=== PATIENT | female | born 1940 | race Caucasian/White ===

== ENCOUNTER → 2016-09-13 | Outpatient (CLI) | payer MEDICARE ==
--- NOTE | 2016-09-13 14:36 | RAD ---
Indication pain. The patient has a mastectomy scar in the right chest. The area along the scar was evaluated. At the medial end of the surgical scar there is a small hypoechoic mass involving the dermis most compatible with a focus of scarring. This involves the dermis. No deep-seated soft tissue mass or abnormality outside the dermis is seen
== END | disposition home or self-care (01) ==
LOC: US 13:43
PROVIDERS: ATTEND Family Medicine
DX: L90.5 Scar conditions and fibrosis of skin (principal); R22.2 Localized swelling, mass and lump, trunk; Z90.11 Acquired absence of right breast and nipple
CPT/HCPCS: 76536

== ENCOUNTER → 2018-02-06 | Outpatient (CLI) | payer MEDICARE ==
--- NOTE | 2018-02-06 13:41 | RAD ---
DATE: February 06, 2018 EXAM: MAMMO PÉREZ SCREEN LT HISTORY: Right breast cancer treated with mastectomy 5 years ago. COMPARISON: 2016 and 2017 This study was interpreted with the benefit of Computerized Aided Detection (CAD). 2-D digital mammographic views of the left breast were performed in the CC and MLO projections. 3-D digital tomosynthesis images of the left breast were performed in the CC and MLO projections and reviewed on a computer workstation. FINDINGS: Breast Density: SCATTERED The breast parenchyma shows scattered fibroglandular densities. Breast parenchyma level B.. There are no dominant suspicious masses, suspicious microcalcifications or evidence of architectural distortion. IMPRESSION: No mammographic indicators for malignancy on the left side. BI-RADS CATEGORY: 1 NEGATIVE RECOMMENDED FOLLOW-UP: 12M 12 MONTH FOLLOW-UP PQRS compliance statement: Patient information was entered into a reminder system with a target due date February 07, 2019 for the next mammogram. Mammography is a sensitive method for finding small breast cancers, but it does not detect them all and is not a substitute for careful clinical examination. A negative mammogram does not negate a clinically suspicious finding and should not result in delay in biopsying a clinically suspicious abnormality. "Our facility is accredited by the [employer]amm[employer]." The patient's breast density may affect the ability of mammography to detect breast cancer. There are 4 categories of breast density, A, B, C and D. Breast density A means that most of the breast tissue is replaced with adipose tissue and therefore is not dense. Breast density B means that the breast tissue is mildly dense and scattered. Breast density C means that the breast tissue is heterogeneously dense. Breast density D means that the breast tissue is very dense. Breast densities especially C and D may decrease the sensitivity of mammography to detect breast cancer. Therefore, the patient may benefit from 3-D breast mammography (3D breast tomography) as a part of their screening mammogram. Insurance may or may not pay for this additional imaging. The patient's breast density based on today's mammogram is category B.
== END | disposition home or self-care (01) ==
LOC: MAMMO 13:01
PROVIDERS: ATTEND Family Medicine
DX: Z12.31 Encounter for screening mammogram for malignant neoplasm of breast (principal); Z85.3 Personal history of malignant neoplasm of breast; Z90.11 Acquired absence of right breast and nipple
CPT/HCPCS: 77063; 77067

== ENCOUNTER → 2019-01-10 | Outpatient (CLI) | payer MEDICARE ==
--- NOTE | 2019-01-10 09:54 | CARD ---
MR#: [id number] Date of Study: 01/10/2019 Ordering Physician: TAMMI LOZADA, Referring Physician: TAMMI LOZADA Tech: Keisha Ivey RDCS APPROVED REPORT EXAM: Two-dimensional and M-mode echocardiogram with Doppler and color Doppler. Other Information Quality : Good INDICATION Complete Heart Block Surgery/Intervention Pacemaker: Date: 2017 2D DIMENSIONS RVDd2.7 (2.9-3.5cm)Left Atrium(2D)2.9 (1.6-4.0cm) IVSd0.7 (0.7-1.1cm)Aortic Root(2D)3.1 (2.0-3.7cm) LVDd4.5 (3.9-5.9cm)LVOT Diameter1.9 (1.8-2.4cm) PWd0.7 (0.7-1.1cm)LVDs3.7 (2.5-4.0cm) FS (%) 18.8 %SV36.5 ml LVEF(%)39.0 (>50%) Aortic Valve AoV Peak Michael.119.2cm/sAoV VTI22.0cm AO Peak GR.5.7mmHgLVOT Peak Michael.93.5cm/s LVOT VTI 18.01cmAO Mean GR.3mmHg ALVINA (VMAX)2.66ro6RDU (VTI)2.29cm2 Mitral Valve MV E Junvnmxz379.6cm/sMV DECEL VJKT863bl MV A Szvvblxk04.3cm/sE/A Ratio2.8 Tricuspid Valve TR P. Stpofyeu717gu/sRAP HXRDXSNM1heKh TR Peak Gr.18laGcMFTN37lkLj LEFT VENTRICLE The left ventricle is normal size. There is normal left ventricular wall thickness. Left ventricle sy stolic function is moderate to severely impaired. The Ejection Fraction is 30%. Septal motion suggest franko of conduction defect. Moderate to severe hypokinesis in the distal 1/2 of the LV. RIGHT VENTRICLE The right ventricle is normal size. The right ventricular systolic function is normal. There is a pac emaker/ICD lead in the right ventricle. ATRIA The left atrium size is normal. The right atrium size is normal. A pacemaker is seen in the right atr ium consistent with history. The interatrial septum is intact with no evidence for an atrial septal d efect or patent foramen ovale as noted on 2-D or Doppler imaging. AORTIC VALVE The aortic valve is calcified but opens well. Doppler and Color Flow revealed no significant aortic r egurgitation. There is no significant aortic valvular stenosis. MITRAL VALVE The mitral valve is normal in structure and function. There is no evidence of mitral valve prolapse. There is no mitral valve stenosis. Doppler and Color-flow revealed mild to moderate mitral regurgitat ion. TRICUSPID VALVE The tricuspid valve is normal in structure and function. Doppler and Color Flow revealed mild tricusp id regurgitation. The PA pressure was estimated at 26 mmHg. There is no tricuspid valve stenosis. PULMONIC VALVE The pulmonic valve is not well visualized. Doppler and Color Flow revealed trace pulmonic valvular re gurgitation. There is no pulmonic valvular stenosis. GREAT VESSELS The aortic root is normal in size. The ascending aorta is normal in size. The IVC is normal in size a nd collapses >50% with inspiration. PERICARDIAL EFFUSION There is no evidence of significant pericardial effusion. Critical Notification Critical Value: No <Conclusion> Left ventricle systolic function is moderate to severely impaired. The Ejection Fraction is 30%. Septal motion suggestive of conduction defect. Moderate to severe hypokinesis in the distal 1/2 of th e LV. There is a pacemaker/ICD lead in the right ventricle. Doppler and Color-flow revealed mild to moderate mitral regurgitation. Signed by : Eloy Tavares, Electronically Approved : 01/10/2019 09:54:34
[2019-01-10] MEDS: REGADENOSON 0.4 MG/5 ML DISP.SYRIN. IV ONE (12:24)
--- NOTE | 2019-01-10 12:50 | RAD ---
MR#: [id number] Date of Study: 01/10/2019 Ordering Physician: TAMMI LOZADA Referring Physician: CHANTE BROWN Tech: RT Dora Boone) (N) APPROVED REPORT Test Type: Pharmacological Stress Nurse/Tech: RT Mely (Divine) (N) Test Indications: complete heart block Cardiac History: pacemaker Medications: see EHR Medical History: see see EHR Resting EC% v paced Resting Heart Rate: 77 bpm Resting Blood Pressure: 149/75mmHg Pretest Chest Pain: None Nurse/Tech Notes Consent: The procedure was explained to the patient in lay terms. Informed consent was witnessed. Giancarlo eout was entered into [employer]. History and Stress Test performed by RT Armen BooneR) (N) Pharm. Details Pharmacologic stress testing was performed using 0.4mg per 5ml of regadenoson given intravenously ove r 7-10 seconds. POST EXERCISE Reason for Termination: Infusion complete Max HR: 141 bpm Max Blood Pressure: 153/79mmHg INTERPRETATION Stress EKG Conclusion: No evidence of stress induced EKG changes Imaging Protocol IMAGE PROTOCOL: Rest Tc-99m/stress Tc-99m 1 day Rest: Stress: Viability: Radiopharm.Tc99m VdaxuiejjKu69g Sestamibi Dose10.5mCi 32.1mCi Duration 15min. 10min. Img Date 01/10/2019 01/10/2019 Inj-Img Foht22vap. 60min. Rest Admin Site:IV - Left AntecubitalAdministrator: RT Mely (R)(N) Stress Admin Site: IV - Left AntecubitalAdministrator: RT Mely (Divine)(N) STRESS DATA End Diast. Vol.51.0mlAv. Heart Rate75.0bpm End Syst. Vol.14.0mlCO Index BSA2.8L/min Myocardial Gdgu429.0gEject. Hxyarchy77.0% Stress Rates Pk. Fill Rate3.53EDV/secLVtime Pk. Fill 241.63msec Pk. Empty Rate3.61ESV/secLVtime Pk. Fonho733.46msec 1/3 Pk. 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 Based on uptake on rest images this defect is mostly nonviable. Although this may be related to prior infarct a pacing artifact is not ruled out Wall Motion Normal LV function with ejection fraction of 70%. Grossly normal wall motion. LV Perf. Quant 17 Seg. SSS19.00 17 Seg. SRS20.00 17 Seg. SDS0.00 Stress Defect Extent (% LAD)28.10Rest Defect Extent (% LAD)23.80Rev. Defect Extent (% LAD)3.80 Stress Defect Extent (% LCX) 57.50Rest Defect Extent (% LCX)61.30Rev. Defect Extent (% LCX)0.00 Stress Defect Extent (% RCA)51.10Rest Defect Extent (% RCA)67.80Rev. Defect Extent (% RCA)0.00 Stress Defect Extent (% DANI)43.90Rest Defect Extent (% DANI)46.10Rev. Defect Extent (% DANI)1.30 Conclusion 1. Paced rhythm is nondiagnostic for any ischemic changes 2. There is a large fixed inferior defect suggestive of prior infarct but given the normal LV functio n/near normal wall motion this may also be related to the pacing artifact. 3. Normal LV function with ejection fraction of 70% 4. Moderate risk study. Signed by : Eloy Tavares, Electronically Approved : 01/10/2019 12:49:43
== END | disposition home or self-care (01) ==
LOC: NM 08:00
PROVIDERS: ATTEND Internal Medicine Cardiovascular Disease
DX: I08.3 Combined rheumatic disorders of mitral, aortic and tricuspid valves (principal); I44.2 Atrioventricular block, complete; Z95.0 Presence of cardiac pacemaker
CPT/HCPCS: 78452; 93017; 93306; A9500; J2785

== ENCOUNTER → 2019-02-12 | Outpatient (CLI) | payer MEDICARE ==
--- NOTE | 2019-02-12 19:25 | RAD ---
DATE: 02/12/2019 EXAM: MAMMO PÉREZ SCREEN LT HISTORY: Routine screening, right mastectomy in 2013 COMPARISON: 11/30/2016 and 02/06/2018 mammographic exams This study was interpreted with the benefit of Computerized Aided Detection (CAD). Breast Density: SCATTERED The breast parenchyma shows scattered fibroglandular densities. Breast parenchyma level B. FINDINGS: No suspicious calcific lesion, mass, or distortion. IMPRESSION: Stable BI-RADS CATEGORY: 1 NEGATIVE RECOMMENDED FOLLOW-UP: 12M 12 MONTH FOLLOW-UP PQRS compliance statement: Patient information was entered into a reminder system with a target due date for the next mammogram. Mammography is a sensitive method for finding small breast cancers, but it does not detect them all and is not a substitute for careful clinical examination. A negative mammogram does not negate a clinically suspicious finding and should not result in delay in biopsying a clinically suspicious abnormality. "Our facility is accredited by the [employer]."
== END | disposition home or self-care (01) ==
LOC: MAMMO 10:45
PROVIDERS: ATTEND Family Medicine
DX: Z12.31 Encounter for screening mammogram for malignant neoplasm of breast (principal); Z90.11 Acquired absence of right breast and nipple; Z85.3 Personal history of malignant neoplasm of breast
CPT/HCPCS: 77063; 77067

== ENCOUNTER → 2020-02-14 | Outpatient (CLI) | payer MEDICARE ==
--- NOTE | 2020-02-14 18:41 | RAD ---
DATE: 02/14/2020 EXAM: MAMMO PÉREZ SCREEN LT HISTORY: Screening. History of right mastectomy in 2013 COMPARISON: 02/12/2019, 02/06/2018 This study was interpreted with the benefit of Computerized Aided Detection (CAD). Breast Density: SCATTERED The breast parenchyma shows scattered fibroglandular densities. Breast parenchyma level B. FINDINGS: No mass, suspicious calcification, or architectural distortion in either breast. IMPRESSION: No evidence of malignancy. BI-RADS CATEGORY: 1 NEGATIVE RECOMMENDED FOLLOW-UP: 12M 12 MONTH FOLLOW-UP PQRS compliance statement: Patient information was entered into a reminder system with a target due date for the next mammogram. Mammography is a sensitive method for finding small breast cancers, but it does not detect them all and is not a substitute for careful clinical examination. A negative mammogram does not negate a clinically suspicious finding and should not result in delay in biopsying a clinically suspicious abnormality. "Our facility is accredited by the [employer]."
== END ==
LOC: MAMMO 10:13
PROVIDERS: ATTEND Family Medicine
DX: Z12.31 Encounter for screening mammogram for malignant neoplasm of breast (principal)
CPT/HCPCS: 77063; 77067

== ENCOUNTER → 2020-04-28 | Outpatient (CLI) | payer MEDICARE ==
--- NOTE | 2020-04-29 10:20 | CARD ---
MR#: [id number] Date of Study: 04/28/2020 Ordering Physician: TAMMI LOZADA, Referring Physician: TAMMI LOZADA, Tech: Gabriela Venegas APPROVED REPORT EXAM: Two-dimensional and M-mode echocardiogram with Doppler and color Doppler. Other Information Quality : AverageHR: 83bpm INDICATION Arrhythmia Complete Heart Block Surgery/Intervention ICD/Pacemaker: Date: 2017 2D DIMENSIONS Left Atrium(2D)2.3 (1.6-4.0cm)IVSd0.8 (0.7-1.1cm) Aortic Root(2D)2.8 (2.0-3.7cm)LVDd4.7 (3.9-5.9cm) LVOT Diameter1.8 (1.8-2.4cm)PWd0.8 (0.7-1.1cm) LVDs3.2 (2.5-4.0cm)FS (%) 32.2 % SV61.2 ml Aortic Valve AoV Peak Michael.117.9cm/sAoV VTI22.1cm AO Peak GR.5.6mmHgLVOT Peak Michael.83.6cm/s LVOT VTI 14.61cmAO Mean GR.3mmHg ALVINA (VMAX)1.90nq2SFG (VTI)1.73cm2 Mitral Valve MV E Nzttldut29.5cm/sMV DECEL EAHW232os MV A Omqvumbf91.0cm/sE/A Ratio2.1 Pulmonary Valve PV Peak Ruoxadem76.0cm/sPV Peak Grad.2mmHg Tricuspid Valve TR P. Rneqfiiq305ks/sRAP UMQBTSEM5mgBj TR Peak Gr.19mmHg LEFT VENTRICLE The Left Ventricle is borderline dilated. There is normal left ventricular wall thickness. The LV sys tolic function is moderately impaired. Left ventricular ejection fraction is 35 to 40%. Mid to distal septal wall and through the apex is hypokinetic. RIGHT VENTRICLE The right ventricle is normal size. There is normal right ventricular wall thickness. The right ventr icular systolic function is normal. There is a device lead in the right ventricle. ATRIA The left atrium size is normal. The right atrium size is normal. The interatrial septum is intact wit h no evidence for an atrial septal defect or patent foramen ovale as noted on 2-D or Doppler imaging. AORTIC VALVE The aortic valve is normal in structure and function. Doppler and Color Flow revealed no significant aortic regurgitation. There is no significant aortic valvular stenosis. Calculated aortic valve area is 2.1 cm2 with maximum pressure gradient of 6 mmHg and mean pressure gradient of 3 mmHg. MITRAL VALVE The mitral valve is normal in structure and function. There is no evidence of mitral valve prolapse. There is no mitral valve stenosis. Doppler and Color-flow revealed trace mitral regurgitation. TRICUSPID VALVE The tricuspid valve is normal in structure and function. Doppler and Color Flow revealed trace tricus pid regurgitation with an estimated PAP of 22 mmHg. There is no tricuspid valve stenosis. PULMONIC VALVE The pulmonary valve is normal in structure and function. Doppler and Color Flow revealed trace pulmon ic valvular regurgitation. GREAT VESSELS The aortic root is normal in size. The ascending aorta is normal in size. The IVC is normal in size a nd collapses >50% with inspiration. PERICARDIAL EFFUSION There is no evidence of significant pericardial effusion. Critical Notification Critical Value: No <Conclusion> The Left Ventricle is borderline dilated. The LV systolic function is moderately impaired. Left ventricular ejection fraction is 35 to 40%. Mid to distal septal wall and through the apex is hypokinetic. There is a device lead in the right ventricle. Doppler and Color Flow revealed no significant aortic regurgitation. There is no significant aortic valvular stenosis. Doppler and Color-flow revealed trace mitral regurgitation. Doppler and Color Flow revealed trace tricuspid regurgitation with an estimated PAP of 22 mmHg. Signed by : Dillan Wayne MD Electronically Approved : 04/29/2020 10:19:41
== END ==
LOC: ECHO 10:23
PROVIDERS: ATTEND Internal Medicine Cardiovascular Disease
DX: I44.2 Atrioventricular block, complete (principal)
CPT/HCPCS: 93306

== ENCOUNTER → 2020-05-19 | Outpatient (CLI) | payer MEDICARE | LOC: LAB 13:00 | PROVIDERS: ATTEND Internal Medicine Cardiovascular Disease | DX: Z20.822 Contact with and (suspected) exposure to COVID-19 (principal); I42.9 Cardiomyopathy, unspecified | CPT/HCPCS: U0003 ==

== ENCOUNTER → 2021-02-25 | Outpatient (CLI) | payer MEDICARE ==
--- NOTE | 2021-02-26 11:58 | RAD ---
INDICATION : Routine Screening. COMPARISON: Priors including January 2019 TECHNIQUE: Standard mammogram screening views of the left breast were obtained with 3D tomosynthesis. CAD was utilized. FINDINGS: The breast is scattered density. No definite suspicious mass. IMPRESSION: BI-RADS Category 1: Negative. Recommend repeat exam in one year. The patient was placed into the recall system with a suggested recall date for follow up imaging. Mammography is the most sensitive method for finding small breast cancers, but it does not detect the m all and is not a substitute for careful clinical examination. A negative mammogram does not negate a clinically suspicious finding and should not result in delay in biopsying a clinically suspicious abnormality. Electronically signed by: Pawan Kumar MD (02/26/2021 11:56 AM) [id number]
== END ==
LOC: MAMMO 10:26
PROVIDERS: ATTEND Family Medicine
DX: Z12.31 Encounter for screening mammogram for malignant neoplasm of breast (principal)
CPT/HCPCS: 77063; 77067

== ENCOUNTER → 2021-09-21 | Outpatient (CLI) | payer MEDICARE ==
--- NOTE | 2021-09-21 12:05 | CARD ---
MR#: [id number] Date of Study: 09/21/2021 Ordering Physician: TAMMI LOZADA, Referring Physician: Sergey BROWN: Karel Edge [facility] APPROVED REPORT EXAM: Two-dimensional and M-mode echocardiogram with Doppler and color Doppler. Other Information Quality : AverageHR: 69bpm Rhythm : NSR INDICATION Congestive Heart Failure Surgery/Intervention Pacemaker: RISK FACTORS Smoking 2D DIMENSIONS Left Atrium(2D)2.9 (1.6-4.0cm)IVSd0.8 (0.7-1.1cm) Aortic Root(2D)2.9 (2.0-3.7cm)LVDd3.5 (3.9-5.9cm) LVOT Diameter1.8 (1.8-2.4cm)PWd0.8 (0.7-1.1cm) LA Qeowgz06 (18-58mL)LVDs1.9 (2.5-4.0cm) FS (%) 45.0 %SV38.5 ml LVEF(%)77.3 (>50%) Aortic Valve AoV Peak Michael.98.6cm/sAoV VTI18.6cm AO Peak GR.3.9mmHgLVOT Peak Michael.96.1cm/s LVOT VTI 15.09cmAO Mean GR.2mmHg ALVINA (VMAX)2.82by6FQN (VTI)2.00cm2 Mitral Valve MV E Dbrfedtp63.3cm/sMV E Peak Gr.3mmHg MV DECEL [id number] A Xesuilds05.5cm/s MV E Mean Gr.1mmHgE/A Ratio0.7 Pulmonary Valve PV Peak Ggydkjin10.8cm/sPV Peak Grad.2mmHg Tricuspid Valve TR P. Nbthhqjm007ny/sTR Peak Gr.24mmHg Pulmonary Vein S1 Alpfocut54.3cm/sD2 Olfdobtc55.6cm/s LEFT VENTRICLE The left ventricle is normal size. There is normal left ventricular wall thickness. The left ventricu lar systolic function is normal and the ejection fraction is within normal range. EF 55% There is nor mal LV segmental wall motion. Transmitral Doppler flow pattern is Grade I-abnormal relaxation pattern . No left ventricle thrombus noted on this study. There is no ventricular septal defect visualized. T here is no left ventricular aneurysm. There is no mass noted in the left ventricle. RIGHT VENTRICLE The right ventricle is normal size. There is normal right ventricular wall thickness. The right ventr icular systolic function is normal. Pacemaker lead is noted in the right atrium and right ventricle. ATRIA The left atrium size is normal. The right atrium size is normal. The interatrial septum is intact wit h no evidence for an atrial septal defect or patent foramen ovale as noted on 2-D or Doppler imaging. AORTIC VALVE The aortic valve is mildly sclerotic. The aortic valve is tri-cuspid. Doppler and Color Flow revealed no significant aortic regurgitation. There is no significant aortic valvular stenosis. There is no a ortic valvular vegetation. MITRAL VALVE The mitral valve is thickened but opens well. There is no evidence of mitral valve prolapse. There is no mitral valve stenosis. Doppler and Color-flow revealed trace to mild mitral regurgitation. TRICUSPID VALVE The tricuspid valve is normal in structure and function. Doppler and Color Flow revealed trace tricus pid regurgitation. There is no tricuspid valve prolapse or vegetation. There is no tricuspid valve st enosis. PULMONIC VALVE Doppler and Color Flow revealed no pulmonic valvular regurgitation. There is no pulmonic valvular fabrizio nosis. GREAT VESSELS The aortic root is normal in size. The ascending aorta is normal in size. The IVC is normal in size a nd collapses >50% with inspiration. PERICARDIAL EFFUSION There is no pleural effusion. There is no evidence of significant pericardial effusion. Critical Notification Critical Value: No <Conclusion> The left ventricular systolic function is normal and the ejection fraction is within normal range. EF 55% There is normal LV segmental wall motion. Pacemaker lead is noted in the right atrium and right ventricle. Technically difficult study. Signed by : Eloy Tavares, Electronically Approved : 09/21/2021 12:05:00
== END ==
LOC: ECHO 10:22
PROVIDERS: ATTEND Internal Medicine Cardiovascular Disease
DX: I08.0 Rheumatic disorders of both mitral and aortic valves (principal); I50.22 Chronic systolic (congestive) heart failure
CPT/HCPCS: 93306